=== PATIENT | male | born 1965 | race American Indian/Alaskan Native ===

== ENCOUNTER 2019-04-15 07:36 | Emergency (ER) | payer OTHER ==
[2019-04-15 08:14] LABS: Bilirubin,Urine NEG (Negative); Blood,Urine NEG (Negative); Mucus,Urine 1+ /HPF
[2019-04-15 08:18] LABS: Color,Urine Yellow (Yellow)
[2019-04-15 08:26] LABS: Hemoglobin 11.9 gm/dl (11.8-15.2); Mean Corpuscular HGB Conc 33 % (32-34); Mean Corpuscular Volume 87 fl (84-94); Platelet Count 218 K/mm3 (140-440); Red Blood Count 4.12 M/mm3 (3.65-5.03); Red Cell Distribution Width 13.7 % (13.2-15.2)
[2019-04-15 09:20] LABS: BUN/Creatinine Ratio 18; Blood Urea Nitrogen 16 mg/dL (9-20); Calcium 9.4 mg/dL (8.4-10.2); Hemolysis Index 3
[2019-04-15 09:20] LABS: Amphetamine Screen,Urine PRESUMPTIVE NEGATIVE; Benzodiazepines Screen,Urine PRESUMPTIVE NEGATIVE; Cannabinoid Screen,Urine PRESUMPTIVE NEGATIVE; Methadone Screen,Urine PRESUMPTIVE NEGATIVE; Opiate Screen,Urine PRESUMPTIVE NEGATIVE
[2019-04-15] MEDS ORDERED: HALDOL IM PRN (09:21)
--- NOTE | 2019-04-15 09:24 | Emergency Department Report ---
ED General Adult HPI - General Chief complaint: Psych Stated complaint: SI Time Seen by Provider: 04/15/19 08:24 Source: patient, RN notes reviewed Mode of arrival: Ambulatory Limitations: No Limitations - History of Present Illness Initial comments: This is a 53-year-old gentleman. The patient is not known to this provider previously. The patient has a history of HIV. The patient is not currently on antiviral therapy. He endorses noncompliance for the past year. He denies chronic psychiatric history. He presents to the ER today with complaint of painless suicidality. He indicates that he would like to walk in front of a car. He denies overdose. He denies wanting to harm other people. He denies hallucinations. He denies access to guns, firearms. He denies physical pain at this time.. He is asking to eat at this time. He reports his symptoms are constant, painless, do not radiate anywhere, and he takes no exacerbating or relieving factors. -: Gradual Consistency: constant Improves with: none Worsens with: none Associated Symptoms: denies other symptoms - Related Data Home Medications Medication Instructions Recorded Confirmed Last Taken Quetiapine Fumarate [SEROquel XR] 100 mg PO QDAY 04/15/19 04/15/19 Unknown Zoloft 100 mg PO DAILY 04/15/19 04/15/19 Unknown Allergies Allergy/AdvReac Type Severity Reaction Status Date / Time No Known Allergies Allergy Unverified 04/15/19 07:45 ED Review of Systems ROS: Stated complaint: SI Other details as noted in HPI Comment: All other systems reviewed and negative Psychiatric: suicidal thoughts ED Past Medical Hx - Past Medical History Previous Medical History?: Yes Hx HIV: Yes Additional medical history: Hepatitis, Herpes - Surgical History Past Surgical History?: No - Social History Smoking Status: Current Every Day Smoker Substance Use Type: Cocaine - Medications Home Medications: Home Medications Medication Instructions Recorded Confirmed Last Taken Type Quetiapine Fumarate [SEROquel XR] 100 mg PO QDAY 04/15/19 04/15/19 Unknown History Zoloft 100 mg PO DAILY 04/15/19 04/15/19 Unknown History ED Physical Exam - General Limitations: No Limitations General appearance: alert, in no apparent distress - Head Head exam: Present: atraumatic, normocephalic - Eye Eye exam: Present: normal appearance, EOMI. Absent: nystagmus - ENT ENT exam: Present: normal exam, normal orophraynx, mucous membranes moist, normal external ear exam - Neck Neck exam: Present: normal inspection, full ROM. Absent: tenderness, meningismus - Respiratory Respiratory exam: Present: normal lung sounds bilaterally. Absent: respiratory distress - Cardiovascular Cardiovascular Exam: Present: regular rate, normal rhythm, normal heart sounds. Absent: bradycardia, tachycardia, irregular rhythm, systolic murmur, diastolic murmur, rubs, gallop - GI/Abdominal GI/Abdominal exam: Present: soft. Absent: distended, tenderness, guarding, rebound, rigid, pulsatile mass - Rectal Rectal exam: Present: deferred - Extremities Exam Extremities exam: Present: normal inspection, full ROM, other (2+ pulses noted in the bilateral upper, lower extremities. Compartments soft. No long bony tenderness. The pelvis is stable.). Absent: pedal edema, joint swelling, calf tenderness - Back Exam Back exam: Present: normal inspection, full ROM. Absent: tenderness, CVA tenderness (R), CVA tenderness (L), paraspinal tenderness, vertebral tenderness - Neurological Exam Neurological exam: Present: alert, normal gait, other (Extraocular movements intact. Tongue midline. No facial droop. Facial sensation intact to light touch in the V1, V2, V3 distribution bilaterally. 5 and 5 strength in 4 extremities.. Sensation is intact to light touch in 4 extremities.). Absent: motor sensory deficit - Psychiatric Psychiatric exam: Present: flat affect, suicidal ideation - Skin Skin exam: Present: warm, dry, intact, normal color. Absent: rash ED Course Vital Signs 04/15/19 07:44 Temperature 97.4 F L Pulse Rate 66 Respiratory 16 Rate Blood Pressure 115/74 O2 Sat by Pulse 100 Oximetry ED Medical Decision Making - Lab Data Result diagrams: 04/15/19 08:15 04/15/19 08:15 Vital Signs 04/15/19 07:44 Temperature 97.4 F L Pulse Rate 66 Respiratory 16 Rate Blood Pressure 115/74 O2 Sat by Pulse 100 Oximetry Lab Results 04/15/19 04/15/19 04/15/19 Range/Units 07:30 07:30 08:15 WBC (4.5-11.0) K/mm3 RBC (3.65-5.03) M/mm3 Hgb (11.8-15.2) gm/dl Hct (35.5-45.6) % MCV (84-94) fl MCH (28-32) pg MCHC (32-34) % RDW (13.2-15.2) % Plt Count (140-440) K/mm3 [place] % (Auto) Baso % (Auto) Seg Neutrophils % Sodium (137-145) mmol/L Potassium (3.6-5.0) mmol/L Chloride (98-107) mmol/L Carbon Dioxide (22-30) mmol/L Anion Gap mmol/L BUN (9-20) mg/dL Creatinine (0.8-1.5) mg/dL Estimated GFR ml/min BUN/Creatinine Ratio % Glucose (75-100) mg/dL Calcium (8.4-10.2) mg/dL Magnesium (1.7-2.3) mg/dL Total Creatine Kinase (55-170) units/L Urine Color Yellow (Yellow) Urine Turbidity Clear (Clear) Urine pH 5.0 (5.0-7.0) Ur Specific [place] 1.030 (1.003-1.030) Urine Protein 30 mg/dl (Negative) mg/dL Urine Glucose (UA) Neg (Negative) mg/dL Urine Ketones Neg (Negative) mg/dL Urine Blood Neg (Negative) Urine Nitrite Neg (Negative) Urine Bilirubin Neg (Negative) Urine Urobilinogen 4.0 (<2.0) mg/dL Ur Leukocyte Esterase Neg (Negative) Urine WBC (Auto) 1.0 (0.0-6.0) /HPF Urine RBC (Auto) 2.0 (0.0-6.0) /HPF U Epithel Cells (Auto) < 1.0 (0-13.0) /HPF Urine Mucus 1+ /HPF Salicylates < 0.3 L (2.8-20.0) mg/dL Urine Opiates Screen Presumptive negative Urine Methadone Screen Presumptive negative Acetaminophen (10.0-30.0) ug/mL Ur Barbiturates Screen Presumptive negative Ur Phencyclidine Scrn Presumptive negative Ur Amphetamines Screen Presumptive negative U Benzodiazepines Scrn Presumptive negative U Marijuana (THC) Screen Presumptive negative Plasma/Serum Alcohol (0-0.07) % 04/15/19 04/15/19 04/15/19 Range/Units 08:15 08:15 08:15 WBC (4.5-11.0) K/mm3 RBC (3.65-5.03) M/mm3 Hgb (11.8-15.2) gm/dl Hct (35.5-45.6) % MCV (84-94) fl MCH (28-32) pg MCHC (32-34) % RDW (13.2-15.2) % Plt Count (140-440) K/mm3 [place] % (Auto) Baso % (Auto) Seg Neutrophils % Sodium 141 (137-145) mmol/L Potassium 3.8 (3.6-5.0) mmol/L Chloride 103.7 (98-107) mmol/L Carbon Dioxide 29 (22-30) mmol/L Anion Gap 12 mmol/L BUN 16 (9-20) mg/dL Creatinine 0.9 (0.8-1.5) mg/dL Estimated GFR > 60 ml/min BUN/Creatinine Ratio 18 % Glucose 85 (75-100) mg/dL Calcium 9.4 (8.4-10.2) mg/dL Magnesium 2.00 (1.7-2.3) mg/dL Total Creatine Kinase 608 H (55-170) units/L Urine Color (Yellow) Urine Turbidity (Clear) Urine pH (5.0-7.0) Ur Specific [place] (1.003-1.030) Urine Protein (Negative) mg/dL Urine Glucose (UA) (Negative) mg/dL Urine Ketones (Negative) mg/dL Urine Blood (Negative) Urine Nitrite (Negative) Urine Bilirubin (Negative) Urine Urobilinogen (<2.0) mg/dL Ur Leukocyte Esterase (Negative) Urine WBC (Auto) (0.0-6.0) /HPF Urine RBC (Auto) (0.0-6.0) /HPF U Epithel Cells (Auto) (0-13.0) /HPF Urine Mucus /HPF Salicylates (2.8-20.0) mg/dL Urine Opiates Screen Urine Methadone Screen Acetaminophen < 5.0 L (10.0-30.0) ug/mL Ur Barbiturates Screen Ur Phencyclidine Scrn Ur Amphetamines Screen U Benzodiazepines Scrn U Marijuana (THC) Screen Plasma/Serum Alcohol < 0.01 (0-0.07) % 04/15/19 Range/Units 08:15 WBC 2.5 L (4.5-11.0) K/mm3 RBC 4.12 (3.65-5.03) M/mm3 Hgb 11.9 (11.8-15.2) gm/dl Hct 36.0 (35.5-45.6) % MCV 87 (84-94) fl MCH 29 (28-32) pg MCHC 33 (32-34) % RDW 13.7 (13.2-15.2) % Plt Count 218 (140-440) K/mm3 [place] % (Auto) [employer] App[employer]ice Baso % (Auto) Meat Apprentice Seg Neutrophils % [employer] Apprentice Sodium (137-145) mmol/L Potassium (3.6-5.0) mmol/L Chloride (98-107) mmol/L Carbon Dioxide (22-30) mmol/L Anion Gap mmol/L BUN (9-20) mg/dL Creatinine (0.8-1.5) mg/dL Estimated GFR ml/min BUN/Creatinine Ratio % Glucose (75-100) mg/dL Calcium (8.4-10.2) mg/dL Magnesium (1.7-2.3) mg/dL Total Creatine Kinase (55-170) units/L Urine Color (Yellow) Urine Turbidity (Clear) Urine pH (5.0-7.0) Ur Specific [place] (1.003-1.030) Urine Protein (Negative) mg/dL Urine Glucose (UA) (Negative) mg/dL Urine Ketones (Negative) mg/dL Urine Blood (Negative) Urine Nitrite (Negative) Urine Bilirubin (Negative) Urine Urobilinogen (<2.0) mg/dL Ur Leukocyte Esterase (Negative) Urine WBC (Auto) (0.0-6.0) /HPF Urine RBC (Auto) (0.0-6.0) /HPF U Epithel Cells (Auto) (0-13.0) /HPF Urine Mucus /HPF Salicylates (2.8-20.0) mg/dL Urine Opiates Screen Urine Methadone Screen Acetaminophen (10.0-30.0) ug/mL Ur Barbiturates Screen Ur Phencyclidine Scrn Ur Amphetamines Screen U Benzodiazepines Scrn U Marijuana (THC) Screen Plasma/Serum Alcohol (0-0.07) % - Medical Decision Making Differential diagnosis, including but not limited to: Depression, mood disorder, suicidality, medical clearance for psychiatric placement Assessment and plan: 53-year-old gentleman with a complaint of depression and plan to walk in front of a car. The patient is afebrile, with reassuring vital signs, clinically sober, and walks with a steady gait. The patient is placed on a 1013 for suicidality. A psychiatric consultation has been requested. He denies medical complaints at this time and physical pain at this time. His physical exam is within normal limits, his laboratory studies are reviewed, and are essentially unremarkable. Patient not taking antiviral medications for over a year, he'll need to follow up with outpatient primary care or infectious disease when she's been psychiatrically optimized. He does not require emergent treatment initiation of antiviral therapy at this time. Leukopenia is appreciated, this is likely chronic, not acutely decompensated, does not require emergent medical workup, or inpatient evaluation; it is likely secondary to his chronic poorly managed medical conditions. Creatine kinase of 608 reviewed and appreciated, patient's has normal renal function, this does not require IV fluids, and it will decrease on its own with oral hydration. At this point in time, the patient does not appear to have an emergent medical contraindication that would preclude psychiatric evaluation, consultation and placement. Critical care attestation.: If time is entered above; I have spent that time in minutes in the direct care of this critically ill patient, excluding procedure time. ED Disposition Clinical Impression: Medical clearance for psychiatric admission Disposition: [id number] PSY HOSP/PSY UNIT Is pt being admited?: No Does the pt Need Aspirin: No Condition: Good Referrals: FAVIAN BERRY MD [Primary Care Provider] - 3-5 Days
[2019-04-15 09:43] LABS: Cocaine Screen,Urine PRESUMPTIVE POSITIVE
[2019-04-15] MEDS: ATIVAN IM PRN (10:38)
[2019-04-15 12:07] LABS: Basophils % (Manual) 0 % (0.0-1.8); Platelet Estimate Consistent w Auto; RBC Morphology Normal; Total Cells Counted 100
[2019-04-16] MEDS ORDERED: BUSPAR PO SCH (10:00)
[2019-04-16] MEDS: ZOLOFT PO SCH (10:34)
[2019-04-16] MEDS ORDERED: ZOFRAN ODT PO PRN (12:11)
[2019-04-16] MEDS ORDERED: ATIVAN PO ONE (12:21)
--- NOTE | 2019-04-16 13:38 | Consultation ---
History of Present Illness - Reason for Consult Consult date: 04/16/19 Reason for consult: Mental Health Evaluation Requesting physician: OUMAR PORTER - Chief Complaint Chief complaint: "I have no reason to live" - History of Present Psychiatric Illness 53 y.o. AA male who presented to the ER for SI's and depression. Today the patient was calm and cooperative during the assessment. He stated that he feel suicidal because of his life and HIV status. He endorsed SI's when asked, but would not confirm or deny a suicide plan. He stated that he is tired of living this life. He acknowledged a previous suicide attempt when asked. He rate his depression 9/10, with 10 being the worse. He stated that he has a hx of depression/anxiety and take Zoloft. He sated that he haven't taken his medication in a several weeks (antidepressant/HIV meds). He denies HI's and AVH's. He denies erratic sleep and a poor appetite. He stated that he self medicate with cocaine to help with his depression. He denies alcohol consumption (etoh). Medications and Allergies Allergies Allergy/AdvReac Type Severity Reaction Status Date / Time No Known Allergies Allergy Unverified 04/15/19 07:45 Home Medications Medication Instructions Recorded Confirmed Last Taken Type Quetiapine Fumarate [SEROquel XR] 100 mg PO QDAY 04/15/19 04/15/19 Unknown History Zoloft 100 mg PO DAILY 04/15/19 04/15/19 Unknown History Active Meds: Active Medications Hydroxyzine Pamoate (Vistaril) 25 mg PO Q6H PRN PRN Reason: Acute Anxiety Lorazepam (Ativan) 2 mg IM Q4HR PRN PRN Reason: Agitation Last Admin: 04/15/19 10:38 Dose: 2 mg Documented by: Ondansetron HCl (Zofran Odt) 4 mg PO Q6HR PRN PRN Reason: Nausea Last Admin: 04/16/19 12:31 Dose: 4 mg Documented by: Sertraline HCl (Zoloft) 50 mg PO DAILY TEENA Last Admin: 04/16/19 10:34 Dose: 50 mg Documented by: Past psychiatric history - Past Medical History Past Medical History: HIV/AIDS Past Surgical History: No surgical history - past Psychiatric treatment and history psychiatric treatment history: Hx of depression and substance abuse. Denies a fam psy hx. - Social History Social history: other (reside with friends) Mental Status Exam - Vital signs Last Vital Signs Temp 97.8 F 04/16/19 07:55 Pulse 64 04/16/19 07:55 Resp 18 04/16/19 07:55 BP 122/81 04/16/19 07:55 Pulse Ox 100 04/16/19 07:55 - Exam Narrative exam: MSE: Appearance: calm, cooperative Behavior: regular eye contact Speech: regular rate and tone Mood: "depressed" Affect: flat Thought Process: circumstantial Thought Content: denies HI's and AVH's Motor Activity: sitting up in bed Cognition: A/O x3 Insight: fair Judgment: poor Results Result Diagrams: 04/15/19 08:15 04/15/19 08:15 All other labs normal. Assessment and Plan Assessment and plan: Impression: MDD, Severe Type. Unspecified Anxiety DO. Substance Use DO (cocaine). Today the patient was calm and cooperative dung the assessment. The patient endorsed SI's. DDx: Substance Induced Mood DO Recommendation/Plan: Continue 1013 and start Zoloft 50 mg PO daily for depress ion/anxiety and Vistaril 25 mg PO Q6hrs PRN for acute anxiety. Discussed possible suicidality/medication induced aidan with the patient reference Zoloft, he verbalize understanding. Ordered Line of site for safety, the patient's assigned nurse informed. Dispo: The patient was referred to inpatient psy services. Will staff with Dr Angeles Oh.
[2019-04-16] MEDS: ATIVAN IM PRN (22:44)
[2019-04-17] MEDS: ZOLOFT PO SCH (09:46)
[2019-04-17] MEDS: VISTARIL PO PRN ×2 (10:28→18:20)
--- NOTE | 2019-04-17 12:34 | Progress Note ---
Subjective - Reason for Consult Consult date: 04/17/19 Reason for consult: Psychiatry Follow-up - Chief Complaint Chief complaint: "My SI's are decreasing" 53 y.o. AA male who presented to the ER for SI's and depression. Today the patient was calm and cooperative during the assessment. He stated that he feel like his Si's are "decreasing." He stated that he need all the help he can get for his mental health. He stated that he didn't sleep well last night. He denies HI's and AVH's. He denies any side effects from his medications. Mental Status Exam - Vital signs Last Vital Signs Temp 98.1 F 04/17/19 08:06 Pulse 76 04/17/19 08:06 Resp 16 04/17/19 08:06 BP 114/69 04/17/19 08:06 Pulse Ox 100 04/17/19 08:06 - Exam Narrative exam: MSE: Appearance: calm, cooperative Behavior: regular eye contact Speech: regular rate and tone Mood: "okay" Affect: congruent to mood Thought Process: circumstantial Thought Content: denies HI's and AVH's Motor Activity: sitting up in bed Cognition: A/O x3 Insight: fair Judgment: variable Assessment and Plan Impression: MDD, Severe Type. Unspecified Anxiety DO. Substance Use DO (cocaine). Today the patient was calm and cooperative dung the assessment. The patient endorsed SI's. DDx: Substance Induced Mood DO Recommendation/Plan: Continue 1013 and Zoloft 50 mg PO daily for depression/anxiety and Vistaril 25 mg PO Q6hrs PRN for acute anxiety. Start Melatonin 5 mg Po Hs for sleep. Discussed possible suicidality/medication induced aidan with the patient reference Zoloft, he verbalize understanding. Dispo: The patient was accepted at [facility] inpatient psy services pending transport time. Will staff with Dr Angeles Oh.
[2019-04-17] MEDS: MELATONIN PO SCH (21:49)
[2019-04-18] MEDS: ATIVAN IM PRN (10:04)
[2019-04-18] MEDS: ZOLOFT PO SCH (10:04)
[2019-04-18] MEDS ORDERED: VISTARIL PO ONE (16:06)
--- NOTE | 2019-04-18 16:55 | Progress Note ---
Subjective - Reason for Consult Consult date: 04/18/19 Reason for consult: follow up - Chief Complaint Chief complaint: "I can't sleep." 53 y.o. AA male who presented to the ER for SI's and depression. Today the patient was calm and cooperative during the assessment. He says he is not sleeping and requests trazodone or seroquel. He says the melatonin did not help. He reports a history of priapism with trazodone. He states he is anxious and depressed. He does not confirm or deny SI today. No HI and reports on and off auditory hallucinations, non command. Mental Status Exam - Vital signs Last Vital Signs Temp 98.3 F 04/18/19 08:52 Pulse 74 04/18/19 08:52 Resp 18 04/18/19 08:52 BP 111/72 04/18/19 08:52 Pulse Ox 100 04/18/19 08:52 - Exam Narrative exam: MSE: Appearance: calm, cooperative Behavior: regular eye contact Speech: regular rate and tone Mood: depressed Affect: congruent to mood Thought Process: circumstantial Thought Content: did not confirm nor deny SI. denies HI. reports AH, non command Motor Activity: sitting up in bed Cognition: A/O x3 Insight: fair Judgment: variable Assessment and Plan Impression: MDD, Severe Type. Psychosis unspecified, Unspecified Anxiety DO. Substance Use DO (cocaine). Today the patient was calm and cooperative dung the assessment. T DDx: Substance Induced Mood DO Recommendation/Plan: Continue 1013 and Zoloft 50 mg PO daily for depression/anxiety and Vistaril 25 mg PO Q6hrs PRN for acute anxiety. Start Melatonin 5 mg Po Hs for sleep. add seroquel 50mg hs for psychotic symptoms and informed of sedating effect. metabolic SE discussed. Discussed possible suicidality/medication induced aidan with the patient reference Zoloft, he verbalize understanding. Dispo: The patient was accepted at [facility] inpatient psy services pending transport time. Will staff with Dr Angeles Oh.
[2019-04-18] MEDS: MELATONIN PO SCH (21:34)
[2019-04-19] MEDS: ZOLOFT PO SCH (10:43)
[2019-04-19] MEDS: VISTARIL PO PRN (10:43)
--- NOTE | 2019-04-19 18:15 | Progress Note ---
Subjective - Reason for Consult Consult date: 04/19/19 Reason for consult: follow up - Chief Complaint Chief complaint: "ok" 53 y.o. AA male who presented to the ER for SI's and depression. Today the patient was calm and cooperative during the assessment. He does not confirm or deny SI today. No HI and reports on and off auditory hallucinations, non command. He says he is "ok" and wanted to know what [facility] is like. He is expected to be transported at 2000 tonight. Mental Status Exam - Vital signs Last Vital Signs Temp 98.3 F 04/19/19 13:33 Pulse 83 04/19/19 13:33 Resp 18 04/19/19 13:33 BP 114/67 04/19/19 13:33 Pulse Ox 99 04/19/19 13:33 - Exam Narrative exam: MSE: Appearance: calm, cooperative Behavior: regular eye contact Speech: regular rate and tone Mood: depressed Affect: congruent to mood Thought Process: circumstantial Thought Content: did not confirm nor deny SI. denies HI. reports AH, non command Motor Activity: sitting up in bed Cognition: A/O x3 Insight: fair Judgment: variable Assessment and Plan Impression: MDD, Severe Type. Psychosis unspecified, Unspecified Anxiety DO. Substance Use DO (cocaine). Today the patient was calm and cooperative during the assessment. DDx: Substance Induced Mood DO Recommendation/Plan: Continue 1013 and Zoloft 50 mg PO daily for depression/anxiety and Vistaril 25 mg PO Q6hrs PRN for acute anxiety. Melatonin 5 mg Po Hs for sleep. seroquel 50mg hs for psychotic symptoms and informed of sedating effect. metabolic SE discussed. Discussed possible suicidality/medication induced aidan with the patient reference Zoloft, he verbalize understanding. Dispo: The patient was accepted at [facility] inpatient psy services Will staff with Dr Angeles Oh.
[2019-04-19 20:43] VITALS: BP 128/87
== END 2019-04-19 20:43 ==
LOC: EEVIPCON 07:36 → ED 07:36
DX: F32.9 Major depressive disorder, single episode, unspecified (principal); F41.9 Anxiety disorder, unspecified; F14.10 Cocaine abuse, uncomplicated; K75.9 Inflammatory liver disease, unspecified; R45.851 Suicidal ideations; F17.200 Nicotine dependence, unspecified, uncomplicated; Z21 Asymptomatic human immunodeficiency virus [HIV] infection status; Z79.899 Other long term (current) drug therapy
CPT/HCPCS: 36415; 80048; 80307; 81001; 82550; 83735; 85007; 85025; 96372; 99285; J2060; 80320; G0480; Q0162; Q0177

== ENCOUNTER 2020-07-26 22:41 | Emergency (ER) | payer SELFPAY | END 2020-07-27 05:30 | disposition left against medical advice (07) | LOC: ED 22:41 | DX: R45.851 Suicidal ideations (principal); Z53.21 Procedure and treatment not carried out due to patient leaving prior to being seen by health care provider ==

== ENCOUNTER 2020-07-27 05:49 | Emergency (ER) | payer SELFPAY ==
[2020-07-27 06:38] LABS: BUN/Creatinine Ratio 20; Blood Urea Nitrogen 16 mg/dL (9-20); Calcium 8.9 mg/dL (8.4-10.2); Hemolysis Index 3
[2020-07-27 06:46] LABS: Hematocrit 34.7 % (35.5-45.6); Hemoglobin 11.3 gm/dl (11.8-15.2); Mean Corpuscular HGB Conc 33 % (32-34); Mean Corpuscular Volume 91 fl (84-94); Platelet Count 195 K/mm3 (140-440); Red Blood Count 3.81 M/mm3 (3.65-5.03); Red Cell Distribution Width 12.5 % (13.2-15.2)
[2020-07-27 06:47] LABS: Basophils % (Auto) 1.3 % (0.0-1.8); Eosinophils % (Auto) 2.5 % (0.0-4.3); Lymphocytes % (Auto) 28.3 % (13.4-35.0); Monocytes % (Auto) 9.8 % (0.0-7.3)
[2020-07-27 06:48] LABS: Eosinophils # (Auto) 0.1 K/mm3 (0.0-0.4); Lymphocytes # (Auto) 0.9 K/mm3 (1.2-5.4); Monocytes # (Auto) 0.3 K/mm3 (0.0-0.8)
[2020-07-27 08:44] VITALS: BP 120/82
[2020-07-27 09:15] LABS: Bilirubin,Urine NEG (Negative); Blood,Urine NEG (Negative); Color,Urine Yellow (Yellow); Mucus,Urine FEW /HPF
[2020-07-27 09:33] LABS: Amphetamine Screen,Urine Negative; Benzodiazepines Screen,Urine Negative; Cannabinoid Screen,Urine Negative; Methadone Screen,Urine Negative; Opiate Screen,Urine Negative
[2020-07-27 09:49] LABS: Cocaine Screen,Urine Positive
--- NOTE | 2020-07-27 10:01 | Emergency Department Report ---
ED Psych HPI - General Chief Complaint: Psych Stated Complaint: MH EVAL/SUICIDAL IDEATION Time Seen by Provider: 07/27/20 08:37 Source: patient Mode of arrival: Ambulatory - History of Present Illness Initial Comments: Chief complaint: "I am depressed. I am suicidal." HPI: This is a 54-year-old male with history of HIV, hepatitis, DVT, HSV, cocaine dependence, major depressive disorder, anxiety who presents with suicidal ideation homicidal ideation. Last use of cocaine 2 days ago. He receives [facility]. He has been compliant with her psychiatric meds. He has a plan to overdose on pills. No new social stressors. MD Complaint: suicidal ideation, feels depressed -: Gradual, days(s) (Several days) Associated Psychiatric Symptoms: depression, suicidal ideation, homicidal ideation History of same: Yes Quality: constant Improves With: none Worsens With: drug use Context: recent drug abuse Associated Symptoms: denies other symptoms If Self Harm: has plan - Related Data Home Medications Medication Instructions Recorded Confirmed Last Taken Zoloft 50 mg PO DAILY 04/15/19 07/27/20 07/20/20 Bictegrav/Emtricit/Tenofov Ala 1 tab PO DAILY 07/27/20 07/27/20 Unknown [Biktarvy 50-200-25 mg (Nf)] Ibuprofen [Motrin 800 MG tab] 1 tab PO DAILY 07/27/20 07/27/20 Unknown QUEtiapine [SEROquel] 100 mg PO QHS 07/27/20 07/27/20 Unknown Sulfamethoxazole/Trimethoprim 1 tab PO DAILY 07/27/20 07/27/20 Unknown [Bactrim DS TAB] Allergies Allergy/AdvReac Type Severity Reaction Status Date / Time buspirone AdvReac Severe Unknown Verified 04/18/19 17:06 trazodone AdvReac Severe Swelling Verified 04/18/19 17:06 ED Review of Systems ROS: Stated complaint: MH EVAL/SUICIDAL IDEATION Other details as noted in HPI Comment: All other systems reviewed and negative Constitutional: denies: fever, malaise Respiratory: denies: cough, shortness of breath Cardiovascular: denies: chest pain Gastrointestinal: denies: abdominal pain, nausea, vomiting Psychiatric: depression, homicidal thoughts, suicidal thoughts ED Past Medical Hx - Past Medical History Previous Medical History?: Yes Hx HIV: Yes Additional medical history: Hepatitis, Herpes, DVT - Surgical History Past Surgical History?: Yes Additional Surgical History: Back surgery 2016 - Social History Smoking Status: Never Smoker Substance Use Type: Cocaine - Medications Home Medications: Home Medications Medication Instructions Recorded Confirmed Last Taken Type Zoloft 50 mg PO DAILY 04/15/19 07/27/20 07/20/20 History Bictegrav/Emtricit/Tenofov Ala 1 tab PO DAILY 07/27/20 07/27/20 Unknown History [Biktarvy 50-200-25 mg (Nf)] Ibuprofen [Motrin 800 MG tab] 1 tab PO DAILY 07/27/20 07/27/20 Unknown History QUEtiapine [SEROquel] 100 mg PO QHS 07/27/20 07/27/20 Unknown History Sulfamethoxazole/Trimethoprim 1 tab PO DAILY 07/27/20 07/27/20 Unknown History [Bactrim DS TAB] ED Physical Exam - General Limitations: No Limitations General appearance: alert, in no apparent distress - Head Head exam: Present: atraumatic, normocephalic - Eye Eye exam: Present: normal appearance - ENT ENT exam: Present: mucous membranes moist - Neck Neck exam: Present: normal inspection, full ROM - Respiratory Respiratory exam: Present: normal lung sounds bilaterally. Absent: respiratory distress, wheezes, rales, rhonchi - Cardiovascular Cardiovascular Exam: Present: regular rate, normal rhythm, normal heart sounds. Absent: systolic murmur, diastolic murmur, rubs, gallop - GI/Abdominal GI/Abdominal exam: Present: soft, normal bowel sounds. Absent: distended, tenderness, guarding, rebound - Rectal Rectal exam: Present: deferred - Extremities Exam Extremities exam: Present: normal inspection - Neurological Exam Neurological exam: Present: alert, oriented X3 - Psychiatric Psychiatric exam: Present: depressed, flat affect - Skin Skin exam: Present: warm, dry, intact, normal color. Absent: rash ED Course Vital Signs 07/27/20 07/27/20 05:56 08:42 Temperature 98.3 F 98.4 F Pulse Rate 76 75 Respiratory 18 20 Rate Blood Pressure 115/77 120/82 [Right] O2 Sat by Pulse 100 100 Oximetry ED Medical Decision Making - Lab Data Result diagrams: 07/27/20 06:03 07/27/20 06:03 Laboratory Results - last 24 hr 07/27/20 07/27/20 07/27/20 06:03 06:03 06:03 WBC RBC Hgb Hct MCV MCH MCHC RDW Plt Count Lymph % (Auto) [place] % (Auto) Eos % (Auto) Baso % (Auto) Lymph # (Auto) [place] # (Auto) Eos # (Auto) Baso # (Auto) Seg Neutrophils % Seg Neutrophils # Sodium 142 Potassium 3.5 L Chloride 106.0 Carbon Dioxide 29 Anion Gap 11 BUN 16 Creatinine 0.8 Estimated GFR > 60 BUN/Creatinine Ratio 20 Glucose 79 Calcium 8.9 Urine Color Urine Turbidity Urine pH Ur Specific [place] Urine Protein Urine Glucose (UA) Urine Ketones Urine Blood Urine Nitrite Urine Bilirubin Urine Urobilinogen Ur Leukocyte Esterase Urine WBC (Auto) Urine RBC (Auto) Urine Mucus Salicylates < 0.3 L Urine Opiates Screen Urine Methadone Screen Acetaminophen 5.0 L Ur Barbiturates Screen Ur Phencyclidine Scrn Ur Amphetamines Screen U Benzodiazepines Scrn Urine Cocaine Screen U Marijuana (THC) Screen Drugs of Abuse Note Plasma/Serum Alcohol 07/27/20 07/27/20 07/27/20 06:03 06:03 08:35 WBC 3.3 L RBC 3.81 Hgb 11.3 L Hct 34.7 L MCV 91 MCH 30 MCHC 33 RDW 12.5 L Plt Count 195 Lymph % (Auto) 28.3 [place] % (Auto) 9.8 H Eos % (Auto) 2.5 Baso % (Auto) 1.3 Lymph # (Auto) 0.9 L [place] # (Auto) 0.3 Eos # (Auto) 0.1 Baso # (Auto) 0.0 Seg Neutrophils % 58.1 Seg Neutrophils # 1.9 Sodium Potassium Chloride Carbon Dioxide Anion Gap BUN Creatinine Estimated GFR BUN/Creatinine Ratio Glucose Calcium Urine Color Yellow Urine Turbidity Clear Urine pH 5.0 Ur Specific [place] 1.027 Urine Protein 30 mg/dl Urine Glucose (UA) Neg Urine Ketones Neg Urine Blood Neg Urine Nitrite Neg Urine Bilirubin Neg Urine Urobilinogen 4.0 Ur Leukocyte Esterase Neg Urine WBC (Auto) 1.0 Urine RBC (Auto) 2.0 Urine Mucus Few Salicylates Urine Opiates Screen Urine Methadone Screen Acetaminophen Ur Barbiturates Screen Ur Phencyclidine Scrn Ur Amphetamines Screen U Benzodiazepines Scrn Urine Cocaine Screen U Marijuana (THC) Screen Drugs of Abuse Note Plasma/Serum Alcohol < 0.01 07/27/20 08:35 WBC RBC Hgb Hct MCV MCH MCHC RDW Plt Count Lymph % (Auto) [place] % (Auto) Eos % (Auto) Baso % (Auto) Lymph # (Auto) [place] # (Auto) Eos # (Auto) Baso # (Auto) Seg Neutrophils % Seg Neutrophils # Sodium Potassium Chloride Carbon Dioxide Anion Gap BUN Creatinine Estimated GFR BUN/Creatinine Ratio Glucose Calcium Urine Color Urine Turbidity Urine pH Ur Specific [place] Urine Protein Urine Glucose (UA) Urine Ketones Urine Blood Urine Nitrite Urine Bilirubin Urine Urobilinogen Ur Leukocyte Esterase Urine WBC (Auto) Urine RBC (Auto) Urine Mucus Salicylates Urine Opiates Screen Negative Urine Methadone Screen Negative Acetaminophen Ur Barbiturates Screen Negative Ur Phencyclidine Scrn Negative Ur Amphetamines Screen Negative U Benzodiazepines Scrn Negative Urine Cocaine Screen Positive U Marijuana (THC) Screen Negative Drugs of Abuse Note Disclamer Plasma/Serum Alcohol - Medical Decision Making Mr. Rojas is a 54-year-old male with previous history of suicide attempt, history of major depressive disorder and anxiety who presents with suicidal ideation plan to overdose on pills. Intake nurse informed me that he also has homicidal ideation. Patient did not express this notion to me. CBC chemistry serum toxicology all within acceptable limits. 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 UDS positive for cocaine. Patient is medically clear for psychiatric care. I have ordered patient's home medications. 1013 form has been completed to initiate involuntary hold. Critical care attestation.: If time is entered above; I have spent that time in minutes in the direct care of this critically ill patient, excluding procedure time. ED Disposition Clinical Impression: Suicidal ideation, Homicidal ideation, Major depressive disorder, Anxiety Disposition: [id number] ANOTHER TYPE HLTHCARE Is pt being admited?: No Does the pt Need Aspirin: No Condition: Stable
[2020-07-27] MEDS ORDERED: SULFAMETHOXAZOLE/TRIMETHOPRIM 800/160MG DS TAB PO SCH (11:00)
[2020-07-27] MEDS ORDERED: NON-FORMULARY EACH (Biktarvy 1 TAB) PO SCH (11:45)
== END 2020-07-27 15:09 | disposition home or self-care (01) ==
LOC: ED 05:49
DX: F41.9 Anxiety disorder, unspecified (principal); F32.9 Major depressive disorder, single episode, unspecified; Z79.899 Other long term (current) drug therapy
CPT/HCPCS: 36415; 80048; 80307; 80320; 81001; 85025; G0480